=== PATIENT | male | born 1930 | race Caucasian/White ===

== ENCOUNTER 2016-04-24 09:33 | Observation (INO) | payer OTHER, BC ==
[~2016-04-24] VITALS: Ht 177.8 cm; Wt 87.1 kg
[~2016-04-24 09:33] MED LIST: CARDURA1 M1 PO; CLOPIDOGREL75 MG PO; DOXAZOSIN MESYLA1 MG PO; GLUCOSAMINE-CH1 EA15 PO; GLUCOSAMINE-CH1 EA27 PO; HYDROCODON-ACE1 EAC7 PO; LOVASTATIN40 MG PO; METOPROLOL SUCC25 MG PO; METOPROLOL SUCC50 MG PO; NEXIUM 24HR20 MG PO; OMEGA 3-6-9 11200 MG PO; PERCOCET 5/31 TABLET PO; PLAVIX75 MG PO; RAMIPRIL10 MG PO; VESICARE5 MG PO; VITAMIN D31000 UNIT PO
[2016-04-24 10:07] LABS: EOSINOPHIL (%) 1.3 % (0-5); EOSINOPHIL COUNT 0.1 K/uL (0-0.3); HEMATOCRIT 36.6 % (38.0-50.0); IMMATURE GRANULOCYTE (%) 0.2 % (0.0-0.7); IMMATURE GRANULOCYTE COUNT 0.1 K/uL; MCH 30.5 PG (29.0-34.0); MCHC 32.8 G/DL (30.0-36.0); MCV 92.9 FL (86-99); MEAN PLAT.VOLUME 9.9 uM^3 (9.0-12.4); MONOCYTE (%) 8.5 % (3-12); MONOCYTE COUNT 0.5 K/uL (0-0.8); NEUTROPHIL (%) 74.1 % (45-76); NEUTROPHIL COUNT 4.6 K/uL (1.8-6.4); PLATELET COUNT 282 K/uL (156-360); RBC DIS.WIDTH-CV 12.8 % (11.8-14.6); RBC DIS.WIDTH-SD 42.2 % (39-53); RED BLOOD COUNT 3.94 M/uL (4.00-5.50); WHITE BLOOD COUNT 6.2 K/uL (4.1-10.2)
[2016-04-24 10:16] LABS: CHLORIDE 102 mEq/L (99-109); POTASSIUM 4.2 mEq/L (3.7-5.4); SODIUM 137 mEq/L (136-147)
[2016-04-24 10:19] LABS: GLUCOSE 165 mg/dL (70-99)
[2016-04-24 10:20] LABS: ANION GAP 9 MEQ/L (2-14)
[2016-04-24 10:21] LABS: TOTAL BILIRUBIN 0.5 mg/dL (0.0-1.0)
[2016-04-24 10:22] LABS: ALKALINE PHOSPHATASE 58 IU/L (3-129); GFR ESTIMATE (CALCULATED) > 59 mL/min/
[2016-04-24 10:23] LABS: UREA NITROGEN (BUN) 18 mg/dL (9-23)
[2016-04-24 10:28] LABS: TROP-I INTERPRETATION NEGATIVE; TROPONIN-I < 0.01 ng/mL (0.0-0.30)
[2016-04-24 11:37] LABS: ADD MIUA? NO; BILIRUBIN NEGATIVE; BLOOD NEGATIVE; COLOR YELLOW ((YELLOW)); GLUCOSE (STRIP) NEGATIVE; KETONES NEGATIVE; LEUKOCYTES NEGATIVE; NITRITE NEGATIVE; PROTEIN (STRIP) NEGATIVE; SPECIFIC GRAVITY 1.014 (1.000-1.030); UCUL ADDED? NO; UROBILINOGEN 0.2 MG/DL (0.2-1.0)
[2016-04-24] MEDS ORDERED: CARBIDOPA/LEVO1 EACH PO (14:25)
[2016-04-24] MEDS ORDERED: DULOXETINE HCL60 MG PO (14:26)
[2016-04-24 15:13] VITALS: BP 197/96
[2016-04-24 19:09] LABS: TROP-I INTERPRETATION NEGATIVE; TROPONIN-I 0.01 ng/mL (0.0-0.30)
[2016-04-24 20:00] VITALS: BP 158/22
[2016-04-24 23:55] VITALS: BP 178/96
[2016-04-25 04:07] VITALS: BP 169/91
[2016-04-25 06:40] LABS: ANION GAP 7 MEQ/L (2-14); CHLORIDE 103 MEQ/L (99-109); GFR ESTIMATE (CALCULATED) > 59 mL/min/; SAMPLE HEMOLYSIS CHECK 1; SAMPLE ICTERIC CHECK 0; SAMPLE LIPEMIA CHECK 0; SODIUM 137 MEQ/L (136-147); UREA NITROGEN (BUN) 17 mg/dL (9-23)
[2016-04-25 06:42] LABS: GLUCOSE 102 mg/dL (70-99)
[2016-04-25 07:00] VITALS: BP 173/80
== END 2016-04-25 10:11 | disposition home or self-care (01) ==
LOC: EME 09:33 → EDOF 13:16 → 5WEST 14:57
PROVIDERS: Emergency Medicine; Internal Medicine
DX: I95.9 Hypotension, unspecified (principal); R42 Dizziness and giddiness; Z91.041 Radiographic dye allergy status; R53.1 Weakness; R11.10 Vomiting, unspecified; E78.5 Hyperlipidemia, unspecified; F03.90 Unspecified dementia, unspecified severity, without behavioral disturbance, psychotic disturbance, mood disturbance, and anxiety; R32 Unspecified urinary incontinence
CPT/HCPCS: 71010; 80048; 80053; 81003; 83605; 84484; 85025; 93005; 99281; 99285; G0378; J0360; J1650; J7030

== ENCOUNTER 2016-07-28 17:49 | Inpatient (IN) | payer OTHER, BC ==
[~2016-07-28] VITALS: Ht 177.8 cm; Wt 84.2 kg
[~2016-07-28 17:49] MED LIST changes: +CARBIDOPA/LEVO1 EACH PO; +DULOXETINE HCL60 MG PO
[2016-07-28 19:01] LABS: HEMATOCRIT 37.4 % (38.0-50.0); MCHC 32.9 G/DL (30.0-36.0); MCV 94.2 FL (86-99); MEAN PLAT.VOLUME 9.4 uM^3 (9.0-12.4); PLATELET COUNT 306 K/uL (156-360); RBC DIS.WIDTH-SD 44.8 % (39-53); RED BLOOD COUNT 3.97 M/uL (4.00-5.50); WHITE BLOOD COUNT 13.8 K/uL (4.1-10.2)
[2016-07-28 19:19] LABS: CHLORIDE 101 mEq/L (99-109); POTASSIUM 4.1 mEq/L (3.7-5.4); SODIUM 135 mEq/L (136-147)
[2016-07-28 19:21] LABS: GLUCOSE 118 mg/dL (70-99)
[2016-07-28 19:22] LABS: ANION GAP 7 MEQ/L (2-14)
[2016-07-28 19:23] LABS: TOTAL BILIRUBIN 0.6 mg/dL (0.0-1.0)
[2016-07-28 19:25] LABS: ALKALINE PHOSPHATASE 58 IU/L (3-129); GFR ESTIMATE (CALCULATED) > 59 mL/min/
[2016-07-28 19:26] LABS: UREA NITROGEN (BUN) 18 mg/dL (9-23)
[2016-07-28] MEDS ORDERED: METOPROLOL SUCC25 MG PO (21:18)
[2016-07-28] MEDS ORDERED: NEXIUM40 MG PO (21:19)
[2016-07-28] MEDS ORDERED: RED YEAST RICE600 MG PO (21:20)
[2016-07-28 23:40] VITALS: BP 190/95
[2016-07-29] VITALS (7 sets, daily range): BP systolic 155–195; BP diastolic 70–96
[2016-07-29 05:33] LABS: HEMATOCRIT 35.6 % (38.0-50.0); MCH 30.8 PG (29.0-34.0); MCHC 32.3 G/DL (30.0-36.0); MCV 95.4 FL (86-99); MEAN PLAT.VOLUME 10.1 uM^3 (9.0-12.4); PLATELET COUNT 280 K/uL (156-360); RBC DIS.WIDTH-CV 13.2 % (11.8-14.6); RBC DIS.WIDTH-SD 46.1 % (39-53); RED BLOOD COUNT 3.73 M/uL (4.00-5.50)
[2016-07-29 05:34] LABS: WHITE BLOOD COUNT 9.5 K/uL (4.1-10.2)
[2016-07-29 05:54] LABS: ANION GAP 6 MEQ/L (2-14); CHLORIDE 101 MEQ/L (99-109); GFR ESTIMATE (CALCULATED) > 59 mL/min/; GLUCOSE 121 mg/dL (70-99); POTASSIUM 4.4 MEQ/L (3.7-5.4); SAMPLE HEMOLYSIS CHECK 0; SAMPLE ICTERIC CHECK 0; SAMPLE LIPEMIA CHECK 0; SODIUM 135 MEQ/L (136-147); UREA NITROGEN (BUN) 14 mg/dL (9-23)
[2016-07-30] VITALS (7 sets, daily range): BP systolic 125–186; BP diastolic 65–88
[2016-07-30 05:27] LABS: HEMATOCRIT 36.2 % (38.0-50.0); MCH 31.7 PG (29.0-34.0); MCHC 32.9 G/DL (30.0-36.0); MCV 96.5 FL (86-99); MEAN PLAT.VOLUME 10.1 uM^3 (9.0-12.4); PLATELET COUNT 248 K/uL (156-360); RBC DIS.WIDTH-SD 46.6 % (39-53); RED BLOOD COUNT 3.75 M/uL (4.00-5.50); WHITE BLOOD COUNT 9.5 K/uL (4.1-10.2)
[2016-07-30 05:37] LABS: ANION GAP 5 MEQ/L (2-14); CHLORIDE 96 MEQ/L (99-109); GFR ESTIMATE (CALCULATED) > 59 mL/min/; GLUCOSE 109 mg/dL (70-99); POTASSIUM 4.6 MEQ/L (3.7-5.4); SAMPLE HEMOLYSIS CHECK 0; SAMPLE ICTERIC CHECK 0; SAMPLE LIPEMIA CHECK 0; SODIUM 132 MEQ/L (136-147); UREA NITROGEN (BUN) 18 mg/dL (9-23)
[2016-07-30 13:26] LABS: POINT-OF-CARE METER ID UU13113675
[2016-07-30 14:48] LABS: HEMATOCRIT 36.5 % (38.0-50.0); MCH 31.1 PG (29.0-34.0); MCHC 32.3 G/DL (30.0-36.0); MCV 96.1 FL (86-99); MEAN PLAT.VOLUME 9.7 uM^3 (9.0-12.4); PLATELET COUNT 246 K/uL (156-360); RBC DIS.WIDTH-SD 45.7 % (39-53); WHITE BLOOD COUNT 11.1 K/uL (4.1-10.2)
[2016-07-31] VITALS (9 sets, daily range): BP systolic 120–200; BP diastolic 70–98
[2016-07-31 02:59] LABS: CHLORIDE 95 mEq/L (99-109); INTER. NORMALIZED RATIO 1.2; POTASSIUM 4.2 mEq/L (3.7-5.4); PTT 38.4 (25-32); SODIUM 128 mEq/L (136-147)
[2016-07-31 03:00] LABS: POINT-OF-CARE METER ID UU14149397
[2016-07-31 03:02] LABS: EOSINOPHIL (%) 0.1 % (0-5); GLUCOSE 149 mg/dL (70-99); HEMATOCRIT 34.9 % (38.0-50.0); IMMATURE GRANULOCYTE (%) 0.4 % (0.0-0.7); LYMPHOCYTE COUNT 0.5 K/uL (1.0-2.8); MCH 31.1 PG (29.0-34.0); MCHC 33.8 G/DL (30.0-36.0); MEAN PLAT.VOLUME 9.9 uM^3 (9.0-12.4); MONOCYTE (%) 8.8 % (3-12); MONOCYTE COUNT 0.9 K/uL (0-0.8); NEUTROPHIL (%) 85.9 % (45-76); PLATELET COUNT 278 K/uL (156-360); RBC DIS.WIDTH-CV 12.5 % (11.8-14.6); RBC DIS.WIDTH-SD 42.2 % (39-53); WHITE BLOOD COUNT 10.4 K/uL (4.1-10.2)
[2016-07-31 03:03] LABS: ANION GAP 9 MEQ/L (2-14); TOTAL BILIRUBIN 0.5 mg/dL (0.0-1.0)
[2016-07-31 03:05] LABS: ALKALINE PHOSPHATASE 46 IU/L (3-129); GFR ESTIMATE (CALCULATED) > 59 mL/min/; MCV 91.8 FL (86-99)
[2016-07-31 03:06] LABS: UREA NITROGEN (BUN) 17 mg/dL (9-23)
[2016-07-31 03:27] LABS: TROP-I INTERPRETATION NEGATIVE; TROPONIN-I < 0.01 ng/mL (0.0-0.30)
[2016-07-31 04:01] LABS: HDL CHOLESTEROL 34 MG/DL (Desirable>=40); LDL CHOLESTEROL 90 mg/dL (Desirable<100); NON-HDL CHOLESTEROL 102 mg/dL (Desirable<160); SAMPLE HEMOLYSIS CHECK 0; SAMPLE ICTERIC CHECK 0; SAMPLE LIPEMIA CHECK 0; TOTAL CHOLESTEROL 136 mg/dL (Desirable<200); TRIGLYCERIDES 60 MG/DL (Normal: <150)
[2016-07-31 05:10] LABS: METH RESISTANT S AUREUS PCR NEGATIVE (NEGATIVE)
[2016-07-31 05:33] LABS: PROBE CHECK PASS; SPECIMEN PROCESSING CONTROL PASS
[2016-07-31 06:49] LABS: Estimated Average Glucose 131 mg/dL (70-123); HEMOGLOBIN A1c (GLYCOHEMOGLOB) 6.2 % HGB (Below 5.7)
[2016-07-31 09:00] LABS: HEMATOCRIT 36.8 % (38.0-50.0); MCHC 33.2 G/DL (30.0-36.0); MCV 93.4 FL (86-99); PLATELET COUNT 273 K/uL (156-360); RBC DIS.WIDTH-CV 12.4 % (11.8-14.6); RBC DIS.WIDTH-SD 42.6 % (39-53); RED BLOOD COUNT 3.94 M/uL (4.00-5.50)
[2016-07-31 09:03] LABS: WHITE BLOOD COUNT 14.3 K/uL (4.1-10.2)
[2016-07-31 09:26] LABS: ANION GAP 9 MEQ/L (2-14); CHLORIDE 93 MEQ/L (99-109); POTASSIUM 4.3 MEQ/L (3.7-5.4); SAMPLE HEMOLYSIS CHECK 0; SAMPLE ICTERIC CHECK 0; SAMPLE LIPEMIA CHECK 0; SODIUM 129 MEQ/L (136-147)
[2016-07-31 09:32] LABS: GFR ESTIMATE (CALCULATED) > 59 mL/min/; GLUCOSE 134 mg/dL (70-99); UREA NITROGEN (BUN) 17 mg/dL (9-23)
[2016-07-31 09:36] LABS: TROP-I INTERPRETATION NEGATIVE; TROPONIN-I < 0.01 ng/mL (0.0-0.30)
[2016-07-31 15:44] LABS: TROP-I INTERPRETATION NEGATIVE; TROPONIN-I 0.01 ng/mL (0.0-0.30)
[2016-07-31 15:45] LABS: ANION GAP 7 MEQ/L (2-14); CHLORIDE 91 MEQ/L (99-109); GFR ESTIMATE (CALCULATED) > 59 mL/min/; GLUCOSE 151 mg/dL (70-99); POTASSIUM 3.8 MEQ/L (3.7-5.4); SAMPLE HEMOLYSIS CHECK 0; SAMPLE ICTERIC CHECK 0; SAMPLE LIPEMIA CHECK 0; SODIUM 125 MEQ/L (136-147); UREA NITROGEN (BUN) 18 mg/dL (9-23)
[2016-08-01] VITALS (9 sets, daily range): BP systolic 117–183; BP diastolic 61–91
[2016-08-01 05:52] LABS: HEMATOCRIT 34.6 % (38.0-50.0); MCH 30.5 PG (29.0-34.0); MCHC 32.7 G/DL (30.0-36.0); MCV 93.5 FL (86-99); MEAN PLAT.VOLUME 10.3 uM^3 (9.0-12.4); PLATELET COUNT 262 K/uL (156-360); RBC DIS.WIDTH-CV 12.7 % (11.8-14.6); RBC DIS.WIDTH-SD 43.8 % (39-53)
[2016-08-01 05:54] LABS: WHITE BLOOD COUNT 8.3 K/uL (4.1-10.2)
[2016-08-01 06:13] LABS: ANION GAP 5 MEQ/L (2-14); CHLORIDE 92 MEQ/L (99-109); GFR ESTIMATE (CALCULATED) > 59 mL/min/; GLUCOSE 127 mg/dL (70-99); POTASSIUM 4.2 MEQ/L (3.7-5.4); SAMPLE HEMOLYSIS CHECK 0; SAMPLE ICTERIC CHECK 0; SAMPLE LIPEMIA CHECK 0; SODIUM 127 MEQ/L (136-147); UREA NITROGEN (BUN) 20 mg/dL (9-23)
[2016-08-02 06:40] LABS: HEMATOCRIT 35.1 % (38.0-50.0); MCH 30.3 PG (29.0-34.0); MCHC 31.9 G/DL (30.0-36.0); MCV 94.9 FL (86-99); MEAN PLAT.VOLUME 10.2 uM^3 (9.0-12.4); PLATELET COUNT 286 K/uL (156-360); RBC DIS.WIDTH-CV 12.9 % (11.8-14.6); RBC DIS.WIDTH-SD 44.8 % (39-53); WHITE BLOOD COUNT 7.5 K/uL (4.1-10.2)
[2016-08-02 07:18] VITALS: BP 167/80
[2016-08-02 07:31] LABS: ANION GAP 3 MEQ/L (2-14); CHLORIDE 94 MEQ/L (99-109); GFR ESTIMATE (CALCULATED) > 59 mL/min/; GLUCOSE 124 mg/dL (70-99); POTASSIUM 4.3 MEQ/L (3.7-5.4); SAMPLE HEMOLYSIS CHECK 0; SAMPLE ICTERIC CHECK 0; SAMPLE LIPEMIA CHECK 0; SODIUM 129 MEQ/L (136-147); UREA NITROGEN (BUN) 20 mg/dL (9-23)
[2016-08-02 15:32] VITALS: BP 154/78
[2016-08-02 21:05] VITALS: BP 179/96
[2016-08-02 23:48] VITALS: BP 143/76
[2016-08-03 06:33] LABS: HEMATOCRIT 35.4 % (38.0-50.0); MCHC 32.8 G/DL (30.0-36.0); MCV 94.7 FL (86-99); MEAN PLAT.VOLUME 9.9 uM^3 (9.0-12.4); PLATELET COUNT 281 K/uL (156-360); RBC DIS.WIDTH-CV 13.1 % (11.8-14.6); RBC DIS.WIDTH-SD 45.2 % (39-53); RED BLOOD COUNT 3.74 M/uL (4.00-5.50); WHITE BLOOD COUNT 7.5 K/uL (4.1-10.2)
[2016-08-03 07:03] LABS: ANION GAP 8 MEQ/L (2-14); CHLORIDE 96 MEQ/L (99-109); GFR ESTIMATE (CALCULATED) > 59 mL/min/; GLUCOSE 123 mg/dL (70-99); POTASSIUM 4.2 MEQ/L (3.7-5.4); SAMPLE HEMOLYSIS CHECK 0; SAMPLE ICTERIC CHECK 0; SAMPLE LIPEMIA CHECK 0; UREA NITROGEN (BUN) 25 mg/dL (9-23)
[2016-08-03 07:04] LABS: SODIUM 136 MEQ/L (136-147)
[2016-08-03 07:34] VITALS: BP 182/94
[2016-08-03 08:00] VITALS: BP 170/80
[2016-08-03 09:00] VITALS: BP 152/75
[2016-08-03 16:31] VITALS: BP 156/81
[2016-08-03 18:13] VITALS: BP 173/85
[2016-08-03 19:27] VITALS: BP 152/72
[2016-08-04 00:14] VITALS: BP 173/88
[2016-08-04 08:34] VITALS: BP 160/85
[2016-08-04] MEDS ORDERED: ATORVASTATIN CA40 MG PO (12:49)
[2016-08-04] MEDS ORDERED: RAMIPRIL10 MG PO (12:49)
[2016-08-04] MEDS ORDERED: ENDOCET 5-3251 EACH PO (12:50)
[2016-08-04 16:30] VITALS: BP 135/79
== END 2016-08-04 16:53 | DRG 481 ==
LOC: EME 17:49 → EDOF 21:45 → 3EAST 21:45 → 4WEST 07-31 03:47 → 5SOUTH 08-01 16:46 → 3EAST 08-03 18:04
PROVIDERS: Emergency Medicine; Internal Medicine; Orthopaedic Surgery; Physician Assistant Medical
PROC: 0QH634Z Insertion of Internal Fixation Device into Right Upper Femur, Percutaneous Approach (ICD-10-PCS; principal; 2016-07-30)
DX: S72.001A Fracture of unspecified part of neck of right femur, initial encounter for closed fracture (principal); R47.01 Aphasia; E78.5 Hyperlipidemia, unspecified; I10 Essential (primary) hypertension; E03.9 Hypothyroidism, unspecified; K21.9 Gastro-esophageal reflux disease without esophagitis; Z87.891 Personal history of nicotine dependence; K22.70 Barrett's esophagus without dysplasia; R79.9 Abnormal finding of blood chemistry, unspecified; W18.30XA Fall on same level, unspecified, initial encounter; Y93.9 Activity, unspecified; Y92.9 Unspecified place or not applicable; Y99.9 Unspecified external cause status; R47.02 Dysphasia; G89.18 Other acute postprocedural pain; Z86.73 Personal history of transient ischemic attack (TIA), and cerebral infarction without residual deficits; R53.1 Weakness; Z88.1 Allergy status to other antibiotic agents; Z91.041 Radiographic dye allergy status; R29.818 Other symptoms and signs involving the nervous system
CPT/HCPCS: 70450; 70544; 70549; 70551; 71010; 73501; 73502; 76000; 80048; 80048 91; 80053; 80061; 82948; 83036; 84484; 85025; 85027; 85610; 85730; 86900; 86901; 87641; 92523 GN; 93005; 93306; 94799; 97113 GP; 97530 GO; 97530 GP; 99281; 99284; C1713; J0690; J1100; J1170; J1650; J1940; J2405; J3010; J7030

== ENCOUNTER 2016-09-04 08:01 | Emergency (ER) | payer OTHER, BC ==
[~2016-09-04] VITALS: Ht 177.8 cm; Wt 84.3 kg
[~2016-09-04 08:01] MED LIST changes: +ATORVASTATIN CA40 MG PO; +ENDOCET 5-3251 EACH PO; +NEXIUM40 MG PO; +RED YEAST RICE600 MG PO
[2016-09-04 11:22] VITALS: BP 164/85
== END 2016-09-04 12:43 ==
LOC: EME → EDBD 08:01 → EME 12:43
PROC: 3E0234Z Introduction of Serum, Toxoid and Vaccine into Muscle, Percutaneous Approach (ICD-10-PCS; principal; 2016-09-04)
DX: S00.03XA Contusion of scalp, initial encounter (principal); W18.30XA Fall on same level, unspecified, initial encounter; Y92.129 Unspecified place in nursing home as the place of occurrence of the external cause; Z23 Encounter for immunization; E78.5 Hyperlipidemia, unspecified; I10 Essential (primary) hypertension; K21.9 Gastro-esophageal reflux disease without esophagitis; Z87.891 Personal history of nicotine dependence
CPT/HCPCS: 70450; 72125; 99281; 99284

== ENCOUNTER 2016-10-12 13:28 | Emergency (ER) | payer OTHER, BC ==
[2016-10-12 13:35] LABS: EOSINOPHIL (%) 1.9 % (0-5); EOSINOPHIL COUNT 0.1 K/uL (0-0.3); HEMATOCRIT 28.2 % (38.0-50.0); IMMATURE GRANULOCYTE (%) 0.3 % (0.0-0.7); INSTRUMENT ABS NEUTROPHIL CT 4.7 K/uL; LYMPHOCYTE COUNT 1.7 K/uL (1.0-2.8); MCH 30.6 PG (29.0-34.0); MCHC 32.3 G/DL (30.0-36.0); MCV 94.9 FL (86-99); MEAN PLAT.VOLUME 10.2 uM^3 (9.0-12.4); MONOCYTE (%) 12.6 % (3-12); NEUTROPHIL (%) 62.6 % (45-76); NEUTROPHIL COUNT 4.7 K/uL (1.8-6.4); PLATELET COUNT 311 K/uL (156-360); RBC DIS.WIDTH-CV 12.9 % (11.8-14.6); RBC DIS.WIDTH-SD 45.3 % (39-53); WHITE BLOOD COUNT 7.6 K/uL (4.1-10.2)
[2016-10-12 13:44] LABS: RED BLOOD COUNT 2.97 M/uL (4.00-5.50)
[2016-10-12 13:47] LABS: AMYLASE 31 IU/L (1-118); CHLORIDE 104 mEq/L (99-109); POTASSIUM 4.7 mEq/L (3.7-5.4); SODIUM 138 mEq/L (136-147)
[2016-10-12 13:48] LABS: GLUCOSE 115 mg/dL (70-99)
[2016-10-12 13:50] LABS: ANION GAP 8 MEQ/L (2-14)
[2016-10-12 13:52] LABS: GFR ESTIMATE (CALCULATED) > 59 mL/min/; SERUM ETHYL ALCOHOL < 10 mg/dL
[2016-10-12 13:53] LABS: UREA NITROGEN (BUN) 18 mg/dL (9-23)
[2016-10-12 13:55] LABS: LIPASE 5 U/L (1.0-51.0)
[2016-10-12 14:33] LABS: INTER. NORMALIZED RATIO 1.2; PROTHROMBIN TIME 12.4 (9.2-11.2)
[2016-10-12 16:11] LABS: ADD MIUA? NO; BILIRUBIN NEGATIVE; BLOOD NEGATIVE; COLOR STRAW ((YELLOW)); GLUCOSE (STRIP) NEGATIVE; KETONES NEGATIVE; LEUKOCYTES NEGATIVE; NITRITE NEGATIVE; PROTEIN (STRIP) NEGATIVE; SPECIFIC GRAVITY 1.014 (1.000-1.030); UCUL ADDED? NO; UROBILINOGEN 0.2 MG/DL (0.2-1.0)
[2016-10-12 16:21] LABS: AMPHETAMINE NEGATIVE (500 ng/mL); BARBITURATES NEGATIVE (200 ng/mL); BENZODIAZEPINES NEGATIVE (150 ng/mL); COCAINE NEGATIVE (150 ng/mL); INTERNAL CONTROLS VALID? YES; METHADONE NEGATIVE (200 ng/mL); METHAMPHETAMINE NEGATIVE (500 ng/mL); OPIATES (MORPHINE) NEGATIVE (100 ng/mL); OXYCODONE NEGATIVE (100 ng/mL); PHENCYCLIDINE NEGATIVE (25 ng/mL); PROPOXYPHENE NEGATIVE (300 ng/mL); THC CANNABINOIDS NEGATIVE (50 ng/mL); TRICYCLIC ANTIDEPRESSANTS NEGATIVE (300 ng/mL)
[2016-10-12 16:49] LABS: MCH 30.3 PG (29.0-34.0); MCHC 33.4 G/DL (30.0-36.0); MCV 90.7 FL (86-99); PLATELET COUNT 270 K/uL (156-360); RBC DIS.WIDTH-CV 14.2 % (11.8-14.6); RBC DIS.WIDTH-SD 47.2 % (39-53); RED BLOOD COUNT 4.19 M/uL (4.00-5.50); WHITE BLOOD COUNT 15.3 K/uL (4.1-10.2)
== END 2016-10-12 20:58 | disposition home or self-care (01) ==
LOC: TRA 13:28
PROVIDERS: Emergency Medicine
DX: S01.01XA Laceration without foreign body of scalp, initial encounter (principal); S51.011A Laceration without foreign body of right elbow, initial encounter; T79.4XXA Traumatic shock, initial encounter; R41.0 Disorientation, unspecified; W01.0XXA Fall on same level from slipping, tripping and stumbling without subsequent striking against object, initial encounter; Y92.000 Kitchen of unspecified non-institutional (private) residence as the place of occurrence of the external cause; D64.9 Anemia, unspecified; Z79.02 Long term (current) use of antithrombotics/antiplatelets; I10 Essential (primary) hypertension
CPT/HCPCS: 70450; 70486; 71260; 72125; 72129; 72132; 74177; 80048 91; 81003; 82150; 83690; 85025 91; 85027; 85610; 86900; 86901; 86920; 99281; 99285; G0480; J2405; P9016; P9017; P9035

== ENCOUNTER 2016-10-14 17:16 | Inpatient (IN) | payer OTHER, BC ==
[~2016-10-14] VITALS: Ht 177.8 cm; Wt 89.0 kg
[2016-10-14 17:39] LABS: INTER. NORMALIZED RATIO 1.1; PROTHROMBIN TIME 12.3 SEC (10.2-12.9)
[2016-10-14 17:42] LABS: PTT 29.7 SEC (25-37)
[2016-10-14 17:45] LABS: CHLORIDE 105 mEq/L (99-109); POTASSIUM 3.8 mEq/L (3.7-5.4); SODIUM 139 mEq/L (136-147)
[2016-10-14 17:47] LABS: GLUCOSE 110 mg/dL (70-99); HEMATOCRIT 29.6 % (38.0-50.0); MCH 30.7 PG (29.0-34.0); MCHC 33.4 G/DL (30.0-36.0); MCV 91.9 FL (86-99); MEAN PLAT.VOLUME 10.9 uM^3 (9.0-12.4); PLATELET COUNT 241 K/uL (156-360); RBC DIS.WIDTH-CV 14.3 % (11.8-14.6); RBC DIS.WIDTH-SD 48.6 % (39-53); RED BLOOD COUNT 3.22 M/uL (4.00-5.50); WHITE BLOOD COUNT 9.2 K/uL (4.1-10.2)
[2016-10-14 17:48] LABS: ANION GAP 7 MEQ/L (2-14)
[2016-10-14 17:49] LABS: TOTAL BILIRUBIN 0.5 mg/dL (0.0-1.0)
[2016-10-14 17:51] LABS: ALKALINE PHOSPHATASE 59 IU/L (3-129); GFR ESTIMATE (CALCULATED) > 59 mL/min/
[2016-10-14 17:52] LABS: UREA NITROGEN (BUN) 13 mg/dL (9-23)
[2016-10-14 19:49] VITALS: BP 179/93
[2016-10-14 19:53] VITALS: BP 179/93
[2016-10-14 20:25] LABS: HEMATOCRIT 22.5 % (38.0-50.0); INTER. NORMALIZED RATIO 1.2; MCH 30.3 PG (29.0-34.0); MCHC 32.9 G/DL (30.0-36.0); MCV 92.2 FL (86-99); MEAN PLAT.VOLUME 10.3 uM^3 (9.0-12.4); PLATELET COUNT 270 K/uL (156-360); PROTHROMBIN TIME 13.6 SEC (10.2-12.9); RBC DIS.WIDTH-CV 14.2 % (11.8-14.6); RBC DIS.WIDTH-SD 48.7 % (39-53); RED BLOOD COUNT 2.44 M/uL (4.00-5.50); WHITE BLOOD COUNT 16.9 K/uL (4.1-10.2)
[2016-10-14 20:39] LABS: TROP-I INTERPRETATION NEGATIVE; TROPONIN-I 0.02 ng/mL (0.0-0.30)
[2016-10-14 20:44] LABS: CHLORIDE 107 mEq/L (99-109); POTASSIUM 3.8 mEq/L (3.7-5.4); SODIUM 136 mEq/L (136-147)
[2016-10-14 20:45] LABS: MAGNESIUM 1.3 mg/dL (1.3-2.7)
[2016-10-14 20:47] LABS: GLUCOSE 142 mg/dL (70-99)
[2016-10-14 20:48] LABS: ANION GAP 6 MEQ/L (2-14)
[2016-10-14 20:49] LABS: TOTAL BILIRUBIN 0.5 mg/dL (0.0-1.0)
[2016-10-14 20:51] LABS: ALKALINE PHOSPHATASE 50 IU/L (3-129); GFR ESTIMATE (CALCULATED) > 59 mL/min/
[2016-10-14 20:52] LABS: UREA NITROGEN (BUN) 13 mg/dL (9-23)
[2016-10-14] MEDS ORDERED: RAMIPRIL10 MG PO (21:15)
[2016-10-14] MEDS ORDERED: CYMBALTA30 MG PO (21:15)
[2016-10-14] MEDS ORDERED: LOVASTATIN40 MG PO (21:15)
[2016-10-14] MEDS ORDERED: DOXAZOSIN MESYLA1 MG PO (21:16)
[2016-10-14] MEDS ORDERED: FISH OIL 1,2001 EAC4 PO (21:16)
[2016-10-14] MEDS ORDERED: CELEBREX100 MG PO (21:17)
[2016-10-14 21:46] VITALS: BP 153/79
[2016-10-14 22:00] VITALS: BP 155/77
[2016-10-14 22:54] VITALS: BP 181/90
[2016-10-15] VITALS (12 sets, daily range): BP systolic 137–188; BP diastolic 74–88
[2016-10-15 06:47] LABS: HEMATOCRIT 26.9 % (38.0-50.0); MCH 29.8 PG (29.0-34.0); MCHC 33.8 G/DL (30.0-36.0); MEAN PLAT.VOLUME 10.2 uM^3 (9.0-12.4); PLATELET COUNT 244 K/uL (156-360); RBC DIS.WIDTH-CV 14.6 % (11.8-14.6); RBC DIS.WIDTH-SD 46.6 % (39-53); WHITE BLOOD COUNT 9.1 K/uL (4.1-10.2)
[2016-10-15 06:54] LABS: MCV 88.2 FL (86-99); RED BLOOD COUNT 3.05 M/uL (4.00-5.50)
[2016-10-15 07:22] LABS: ALKALINE PHOSPHATASE 42 IU/L (3-129); ANION GAP 7 MEQ/L (2-14); CHLORIDE 107 MEQ/L (99-109); GFR ESTIMATE (CALCULATED) > 59 mL/min/; GLUCOSE 126 mg/dL (70-99); POTASSIUM 3.8 MEQ/L (3.7-5.4); SAMPLE HEMOLYSIS CHECK 0; SAMPLE ICTERIC CHECK 0; SAMPLE LIPEMIA CHECK 0; SODIUM 140 MEQ/L (136-147); TOTAL BILIRUBIN 0.8 MG/DL (0.0-1.0); UREA NITROGEN (BUN) 10 mg/dL (9-23)
[2016-10-15 09:19] LABS: TROP-I INTERPRETATION NEGATIVE; TROPONIN-I 0.01 ng/mL (0.0-0.30)
[2016-10-15 16:13] LABS: TROP-I INTERPRETATION NEGATIVE; TROPONIN-I 0.01 ng/mL (0.0-0.30)
[2016-10-16] VITALS (7 sets, daily range): BP systolic 142–184; BP diastolic 68–86
[2016-10-16 01:18] LABS: TROP-I INTERPRETATION NEGATIVE; TROPONIN-I < 0.01 ng/mL (0.0-0.30)
[2016-10-16 06:42] LABS: HEMATOCRIT 24.3 % (38.0-50.0)
[2016-10-16 08:33] LABS: TROP-I INTERPRETATION NEGATIVE; TROPONIN-I 0.01 ng/mL (0.0-0.30)
[2016-10-16 16:32] LABS: TROP-I INTERPRETATION NEGATIVE; TROPONIN-I 0.01 ng/mL (0.0-0.30)
[2016-10-17] VITALS (7 sets, daily range): BP systolic 142–188; BP diastolic 65–91
[2016-10-17 02:08] LABS: TROP-I INTERPRETATION NEGATIVE; TROPONIN-I < 0.01 ng/mL (0.0-0.30)
[2016-10-17 06:27] LABS: HEMATOCRIT 24.9 % (38.0-50.0); MCV 91.9 FL (86-99)
[2016-10-17 07:22] LABS: TROP-I INTERPRETATION NEGATIVE; TROPONIN-I 0.01 ng/mL (0.0-0.30)
[2016-10-17] MEDS ORDERED: LOW DOSE ASPIRI81 M1 PO (12:36)
[2016-10-17] MEDS ORDERED: NIFEREX-150,FE150 MG PO (12:36)
[2016-10-17] MEDS ORDERED: SENNA LAX8.6 MG PO (12:36)
[2016-10-17] MEDS ORDERED: BACTRIM,SEPT1 TABLET PO (12:36)
== END 2016-10-17 15:10 | DRG 580 ==
LOC: EME 17:16 → EDOF 20:14 → 3EAST 20:14
PROVIDERS: Emergency Medicine; Surgery
PROC: 30233R1 Transfusion of Nonautologous Platelets into Peripheral Vein, Percutaneous Approach (ICD-10-PCS; principal; 2016-10-14)
PROC: 0JQ00ZZ Repair Scalp Subcutaneous Tissue and Fascia, Open Approach (ICD-10-PCS; principal; 2016-10-14)
PROC: 0KB00ZZ Excision of Head Muscle, Open Approach (ICD-10-PCS; principal; 2016-10-14)
PROC: 30233N1 Transfusion of Nonautologous Red Blood Cells into Peripheral Vein, Percutaneous Approach (ICD-10-PCS; principal; 2016-10-14)
DX: S01.01XA Laceration without foreign body of scalp, initial encounter (principal); W18.39XA Other fall on same level, initial encounter; D62 Acute posthemorrhagic anemia; I95.9 Hypotension, unspecified; R42 Dizziness and giddiness; S40.011A Contusion of right shoulder, initial encounter; D69.1 Qualitative platelet defects; T45.525A Adverse effect of antithrombotic drugs, initial encounter; G20 Parkinson's disease; R29.6 Repeated falls; I10 Essential (primary) hypertension; E11.9 Type 2 diabetes mellitus without complications; E78.5 Hyperlipidemia, unspecified; K21.9 Gastro-esophageal reflux disease without esophagitis; K22.70 Barrett's esophagus without dysplasia; K20.9 Esophagitis, unspecified; R32 Unspecified urinary incontinence; M48.00 Spinal stenosis, site unspecified; Z66 Do not resuscitate; Y92.019 Unspecified place in single-family (private) house as the place of occurrence of the external cause; Z91.81 History of falling; Z79.02 Long term (current) use of antithrombotics/antiplatelets; Z85.038 Personal history of other malignant neoplasm of large intestine; Z85.46 Personal history of malignant neoplasm of prostate; Z85.828 Personal history of other malignant neoplasm of skin; Z86.73 Personal history of transient ischemic attack (TIA), and cerebral infarction without residual deficits; Z87.440 Personal history of urinary (tract) infections; Z87.891 Personal history of nicotine dependence
CPT/HCPCS: 36415; 70450; 73030; 80048; 80053; 80061; 82330; 83735; 84100; 84443; 84484; 85014; 85018; 85025; 85027; 85610; 85730; 86900; 86901; 86920; 93005; 94799; 99281; 99285; J0690; J7050; P9016; P9035

== ENCOUNTER 2016-10-20 14:20 | Emergency (ER) | payer OTHER, BC ==
[~2016-10-20] VITALS: Ht 177.8 cm; Wt 87.2 kg
[~2016-10-20 14:20] MED LIST changes: +BACTRIM,SEPT1 TABLET PO; +CELEBREX100 MG PO; +CYMBALTA30 MG PO; +FISH OIL 1,2001 EAC4 PO; +LOW DOSE ASPIRI81 M1 PO; +NIFEREX-150,FE150 MG PO; +SENNA LAX8.6 MG PO
[2016-10-20] MEDS ORDERED: ACIDOPHILUS1 EAC3 PO (19:12)
[2016-10-20] MEDS ORDERED: PLAVIX75 MG PO (19:12)
[2016-10-20] MEDS ORDERED: METOPROLOL SUCC50 MG PO (19:19)
[2016-10-20 19:24] VITALS: BP 142/72
== END 2016-10-20 19:25 ==
LOC: EME 14:20
DX: S81.812A Laceration without foreign body, left lower leg, initial encounter (principal); W26.8XXA Contact with other sharp object(s), not elsewhere classified, initial encounter; Y92.129 Unspecified place in nursing home as the place of occurrence of the external cause; Z99.3 Dependence on wheelchair; I10 Essential (primary) hypertension; E78.5 Hyperlipidemia, unspecified; Z79.02 Long term (current) use of antithrombotics/antiplatelets; Z87.891 Personal history of nicotine dependence
CPT/HCPCS: 99281; 99284

== ENCOUNTER 2017-02-13 04:57 | Emergency (ER) | payer OTHER ==
[~2017-02-13] VITALS: Ht 177.8 cm; Wt 97.6 kg
[~2017-02-13 04:57] MED LIST changes: +ACIDOPHILUS1 EAC3 PO
[2017-02-13 05:33] LABS: CHLORIDE 102 mEq/L (99-109); SODIUM 136 mEq/L (136-147)
[2017-02-13 05:34] LABS: GLUCOSE 127 mg/dL (70-99)
[2017-02-13 05:36] LABS: ANION GAP 10 MEQ/L (2-14)
[2017-02-13 05:38] LABS: GFR ESTIMATE (CALCULATED) > 59 mL/min/
[2017-02-13 05:39] LABS: UREA NITROGEN (BUN) 18 mg/dL (9-23)
[2017-02-13 05:55] LABS: HEMATOCRIT 34.7 % (38.0-50.0); MCH 29.4 PG (29.0-34.0); MCHC 32.6 G/DL (30.0-36.0); MCV 90.4 FL (86-99); MEAN PLAT.VOLUME 10.8 uM^3 (9.0-12.4); PLATELET COUNT 294 K/uL (156-360); RBC DIS.WIDTH-CV 13.7 % (11.8-14.6); RBC DIS.WIDTH-SD 45.1 % (39-53); RED BLOOD COUNT 3.84 M/uL (4.00-5.50)
[2017-02-13 06:29] VITALS: BP 208/102
== END 2017-02-13 07:38 ==
LOC: EME → EDBD 04:57 → EME 04:57
PROVIDERS: Emergency Medicine
DX: S00.83XA Contusion of other part of head, initial encounter (principal); S11.81XA Laceration without foreign body of other specified part of neck, initial encounter; W06.XXXA Fall from bed, initial encounter; Y92.122 Bedroom in nursing home as the place of occurrence of the external cause; I10 Essential (primary) hypertension; E78.5 Hyperlipidemia, unspecified; K21.9 Gastro-esophageal reflux disease without esophagitis; M48.061 Spinal stenosis, lumbar region without neurogenic claudication; Z79.02 Long term (current) use of antithrombotics/antiplatelets; Z85.46 Personal history of malignant neoplasm of prostate; Z86.73 Personal history of transient ischemic attack (TIA), and cerebral infarction without residual deficits; Z87.891 Personal history of nicotine dependence; Z91.041 Radiographic dye allergy status; Z88.1 Allergy status to other antibiotic agents; Z88.8 Allergy status to other drugs, medicaments and biological substances
CPT/HCPCS: 70450; 80048; 85027; 99281; 99284

== ENCOUNTER 2017-05-02 21:00 | Inpatient (IN) | payer OTHER, BC ==
[~2017-05-02] VITALS: Ht 177.8 cm; Wt 102.5 kg
[~2017-05-02 21:00] MED LIST changes: +VITAMIN D32000 UNI1 PO
[2017-05-02 21:37] LABS: BASOPHIL (%) 0.7 % (0-1); BASOPHIL COUNT 0.1 K/uL (0-0.1); EOSINOPHIL (%) 14.5 % (0-5); EOSINOPHIL COUNT 1.1 K/uL (0-0.3); HEMATOCRIT 35.3 % (38.0-50.0); HEMOGLOBIN 11.3 G/DL (12.5-16.6); IMMATURE GRANULOCYTE (%) 0.3 % (0.0-0.7); LYMPHOCYTE (%) 17.7 % (15-42); LYMPHOCYTE COUNT 1.3 K/uL (1.0-2.8); MCH 30.5 PG (29.0-34.0); MCV 95.1 FL (86-99); MONOCYTE (%) 11.8 % (3-12); MONOCYTE COUNT 0.9 K/uL (0-0.8); NEUTROPHIL COUNT 4.1 K/uL (1.8-6.4); PLATELET COUNT 267 K/uL (156-360); RBC DIS.WIDTH-CV 13.6 % (11.8-14.6); RBC DIS.WIDTH-SD 47.6 % (39-53); RED BLOOD COUNT 3.71 M/uL (4.00-5.50); WHITE BLOOD COUNT 7.4 K/uL (4.1-10.2)
[2017-05-02 21:46] LABS: ALBUMIN 4.2 g/dL (3.2-4.8); CHLORIDE 105 mEq/L (99-109); POTASSIUM 4.4 mEq/L (3.7-5.4); SODIUM 139 mEq/L (136-147)
[2017-05-02 21:48] LABS: GLUCOSE 132 mg/dL (70-99)
[2017-05-02 21:49] LABS: TOTAL PROTEIN 6.8 g/dL (6.4-8.3)
[2017-05-02 21:50] LABS: TOTAL BILIRUBIN 0.3 mg/dL (0.0-1.0)
[2017-05-02 21:52] LABS: ALKALINE PHOSPHATASE 61 IU/L (3-129); CREATININE 0.9 mg/dL (0.6-1.3); GFR ESTIMATE (CALCULATED) > 59 mL/min/ (58.99-99999)
[2017-05-02 21:53] LABS: UREA NITROGEN (BUN) 18 mg/dL (9-23)
[2017-05-02 21:54] LABS: AST (GOT) 14 IU/L (2-34)
[2017-05-02 21:55] LABS: ALT (GPT) 11 IU/L (3-49)
[2017-05-02 22:03] LABS: TROP-I INTERPRETATION NEGATIVE; TROPONIN-I 0.01 ng/mL (0.0-0.30)
[2017-05-02] MEDS ORDERED: DUONEB 2.5-0.5 M3 ML AEROSOL (22:52)
[2017-05-02] MEDS ORDERED: NIFEREX-150,FE150 MG PO (22:55)
[2017-05-02] MEDS ORDERED: ADULT ASPIRIN R81 MG PO (22:55)
[2017-05-02] MEDS ORDERED: METAMUCIL FIBE3.4 GM PO (22:56)
[2017-05-02] MEDS ORDERED: CATAPRES-TTS 21 EACH TD (22:58)
[2017-05-02] MEDS ORDERED: FUROSEMIDE20 MG PO (22:58)
[2017-05-02] MEDS ORDERED: TYLENOL EXTRA500 MG PO (23:01)
[2017-05-02] MEDS ORDERED: METOPROLOL SUCC50 MG PO (23:01)
[2017-05-02] MEDS ORDERED: DULCOLAX10 MG PR (23:02)
[2017-05-02] MEDS ORDERED: PHILLIPS'400 MG/5 M PO (23:02)
[2017-05-02] MEDS ORDERED: FLEET ENEMA-AD118 ML PR (23:03)
[2017-05-02] MEDS ORDERED: TYLENOL REGULA325 MG PO (23:03)
[2017-05-02] MEDS ORDERED: CATAPRES0.1 MG PO (23:04)
[2017-05-03 01:20] VITALS: BP 159/74
[2017-05-03 04:56] VITALS: BP 143/70
[2017-05-03 05:12] LABS: TROP-I INTERPRETATION NEGATIVE; TROPONIN-I < 0.01 ng/mL (0.0-0.30)
[2017-05-03 08:22] VITALS: BP 166/84
[2017-05-03 12:04] VITALS: BP 175/75
[2017-05-03 12:57] LABS: TROP-I INTERPRETATION NEGATIVE; TROPONIN-I < 0.01 ng/mL (0.0-0.30)
[2017-05-03 19:25] VITALS: BP 180/100
[2017-05-04] VITALS (7 sets, daily range): BP systolic 160–191; BP diastolic 79–93
[2017-05-04 06:34] LABS: ALBUMIN 3.8 G/DL (3.2-4.8); ALKALINE PHOSPHATASE 48 IU/L (3-129); ALT (GPT) 8 IU/L (3-49); AST (GOT) 10 IU/L (2-34); CHLORIDE 100 MEQ/L (99-109); CREATININE 0.9 MG/DL (0.6-1.3); GFR ESTIMATE (CALCULATED) > 59 mL/min/ (58.99-99999); GLUCOSE 119 mg/dL (70-99); POTASSIUM 4.2 MEQ/L (3.7-5.4); SODIUM 139 MEQ/L (136-147); TOTAL BILIRUBIN 0.5 MG/DL (0.0-1.0); UREA NITROGEN (BUN) 17 mg/dL (9-23)
[2017-05-05 03:47] VITALS: BP 184/88
[2017-05-05 06:26] LABS: ALBUMIN 3.8 G/DL (3.2-4.8); ALKALINE PHOSPHATASE 46 IU/L (3-129); ALT (GPT) 9 IU/L (3-49); AST (GOT) 12 IU/L (2-34); CHLORIDE 100 MEQ/L (99-109); GFR ESTIMATE (CALCULATED) > 59 mL/min/ (58.99-99999); GLUCOSE 135 mg/dL (70-99); POTASSIUM 3.9 MEQ/L (3.7-5.4); SODIUM 138 MEQ/L (136-147); TOTAL BILIRUBIN 0.4 MG/DL (0.0-1.0); TOTAL PROTEIN 6.3 G/DL (6.4-8.3); UREA NITROGEN (BUN) 21 mg/dL (9-23)
[2017-05-05 08:16] VITALS: BP 165/92
[2017-05-05] MEDS ORDERED: LASIX40 MG PO (08:17)
[2017-05-05 11:45] VITALS: BP 165/85
== END 2017-05-05 14:57 | DRG 293 ==
LOC: EME 21:00 → 3EAST 22:45 → 4EAST 22:45 → EDOF 22:45 → ENRESERV 05-03 00:17 → 4EAST 05-03 01:14 → ENRESERV 05-04 09:06 → 3EAST 05-04 10:48
PROVIDERS: Emergency Medicine; Family Medicine; Internal Medicine
DX: I11.0 Hypertensive heart disease with heart failure (principal); I50.43 Acute on chronic combined systolic (congestive) and diastolic (congestive) heart failure; I50.40 Unspecified combined systolic (congestive) and diastolic (congestive) heart failure; E78.5 Hyperlipidemia, unspecified; E66.9 Obesity, unspecified; F03.90 Unspecified dementia, unspecified severity, without behavioral disturbance, psychotic disturbance, mood disturbance, and anxiety; G20 Parkinson's disease; R32 Unspecified urinary incontinence; E11.9 Type 2 diabetes mellitus without complications; K21.9 Gastro-esophageal reflux disease without esophagitis; F41.9 Anxiety disorder, unspecified; F32.9 Major depressive disorder, single episode, unspecified; E03.9 Hypothyroidism, unspecified; E55.9 Vitamin D deficiency, unspecified; K22.70 Barrett's esophagus without dysplasia; Z85.46 Personal history of malignant neoplasm of prostate; Z87.891 Personal history of nicotine dependence; Z86.73 Personal history of transient ischemic attack (TIA), and cerebral infarction without residual deficits; R09.02 Hypoxemia; Z68.32 Body mass index [BMI] 32.0-32.9, adult; Z80.42 Family history of malignant neoplasm of prostate; Z85.828 Personal history of other malignant neoplasm of skin; Z80.0 Family history of malignant neoplasm of digestive organs; Z91.81 History of falling
CPT/HCPCS: 71046; 80053; 83880; 84484; 85025; 87502; 93005; 93306; 94640; 94640 76; 94799; 97530 GP; 99202; 99281; 99285; J1650; J1940